=== PATIENT | male | born 1970 | race African-American/Black ===

== ENCOUNTER 2017-01-25 07:59 | Day surgery (SDC) | payer OTHER ==
[~2017-01-25] VITALS: Ht 167.6 cm; Wt 81.7 kg
--- NOTE | 2017-01-25 10:38 | NUR ---
01/25/17 1038 Lashawn Hanson 1022 RESP EVEN AND UNLABORED. PT WOKE UP REORIENTED TO PACU. DENINES PAIN AND NAUSEA. IV IN RIGHT AC INFUSING. 1036 PT SITTING UP DENIENS NAUSEA AND PAIN.
--- NOTE | 2017-01-26 07:59 | OR ---
[facility] [address], [place] [address] Signed DATE OF OPERATION: 01/25/2017 SURGEON: Kathie Santiago MD COLONOSCOPY REPORT PREOPERATIVE DIAGNOSES: 1. Rectal bleeding. 2. Guaiac-positive stool. POSTOPERATIVE DIAGNOSES: 1. 5 x 12 mm pedunculated polyp at 20 cm (tattoo). 2. 4 mm polyps x2 at 18 cm. 3. 3 mm polyp x1 at 10 cm. 4. Ndletqs-ws-qpcvqift external hemorrhoids. PROCEDURE: Colonoscopy with snare polypectomy, hot biopsy, and tattoo at 20 cm. ESTIMATED BLOOD LOSS: Minimal. INDICATIONS: Richard is a 46-year-old gentleman from our [facility]. He has noted some blood on the toilet paper over the last 3 months. His stool was guaiac positive. He was asked to see me for his colonoscopy. He has no family history of colon cancer or polyps. Of course, he has never had previous colonoscopy. I reviewed with Richard the nature of a colonoscopy along with the risks including, but not limited to gas, bloating, crampy abdominal pain, bleeding, perforation requiring surgery, and missed diagnosis. We also discussed the need for IV conscious sedation. He had expressed understanding and wished to proceed. PROCEDURE NOTE: Richard was taken into our endoscopy suite and placed in the left lateral decubitus position. He was given divided doses of 9 mg of Versed and 150 mcg of fentanyl. A digital rectal exam was performed and he does have bimlgqr-cw-copoovlc bilateral external hemorrhoids. He has good sphincter tone. There were no masses noted. The adult colonoscope was then introduced and advanced all around into the cecum under direct visualization of camera without difficulty. His prep was quite good. The scope was then slowly withdrawn. We found this 5 x 12 mm pedunculated polyp at 20 cm. We divided Electronically Signed By: KATHIE SANTIAGO MD 01/26/17 0759 PATIENT NAME: RICHARD STRAUSS OPERATIVE REPORT DATE OF : 68 PHYSICIAN: KATHIE SANTIAGO MD REPORT #: [id number] REPORT IS CONFIDENTIAL AND NOT TO BE RELEASED WITHOUT AUTHORIZATION [facility] [address], [place] [address] Signed probably 90% of it with the snare and captured it for pathology. We then cauterized the base and that tissue went separately. We then injected tattoo just to the side of the area that we cauterized to keith its location. After this, at 18 cm, there were 2 small polyps, thus we removed with a hot biopsy forceps and another small polyp back in the mid rectum at 10 cm was removed with hot biopsy forceps. After this, the scope in retroflexion really no additional pathology noted above the anal canal. The gas was then suctioned out and colonoscope removed. Richard tolerated the procedure quite well. RECOMMENDATIONS: I will see Richard back in the office here in a few weeks and we will review the pathology report in his results. MD LARRY Ruano/JOHNL /[id number] cc: MD Kathie Valle MD Electronically Signed By: KATHIE SANTIAGO MD 01/26/17 0759 PATIENT NAME: RICHARD STRAUSS OPERATIVE REPORT DATE OF : 68 PHYSICIAN: KATHIE SANTIAGO MD REPORT #: [id number] REPORT IS CONFIDENTIAL AND NOT TO BE RELEASED WITHOUT AUTHORIZATION
== END 2017-01-25 11:04 | disposition home or self-care (01) ==
LOC: DS 07:59 → OPS 07:59 → DS 09:45 → OPS 09:45
PROVIDERS: Colon & Rectal Surgery
PROC: 3E0H8GC Introduction of Other Therapeutic Substance into Lower GI, Via Natural or Artificial Opening Endoscopic (ICD-10-PCS; 2017-01-25)
PROC: 0DBE8ZX Excision of Large Intestine, Via Natural or Artificial Opening Endoscopic, Diagnostic (ICD-10-PCS; principal; 2017-01-25 09:45)
DX: D12.6 Benign neoplasm of colon, unspecified (principal); K63.5 Polyp of colon; K64.4 Residual hemorrhoidal skin tags; Z79.899 Other long term (current) drug therapy
CPT/HCPCS: 99152; 99153; J2250; J3010

== ENCOUNTER 2017-03-17 06:52 | Day surgery (SDC) | payer OTHER ==
[~2017-03-17] VITALS: Ht 167.6 cm; Wt 83.9 kg
[2017-03-17] MEDS ORDERED: NORCO 5-325 TA1 EACH PO (07:13)
[2017-03-17] MEDS ORDERED: NEURONTIN400 MG PO (07:14)
[2017-03-17] MEDS ORDERED: VENTOLIN HFA18 GM INH (07:17)
--- NOTE | 2017-03-17 10:40 | NUR ---
03/17/17 1040 Lashawn Hanson 1008 RESP EVEN AND UNLABORED WITH ORAL AIRWAY IN PLACE. 1011 ORAL AIRWAY REMOVED, PT DROWSY. REORIENTED TO PACU. 1020 O2 REMOVED, O2 SAT 100%. 1025 PT REPORTS PAIN 8/10, PAIN MEDICAITON GIVEN PER EMAR. 1027 PT USING URINAL. 1032 PT REPORTING A DECREASE IN PAIN, 6/10
--- NOTE | 2017-03-17 11:40 | NUR ---
LE 1105: PT ARRIVES TO TREATMENT ROOM IN DS UNIT, AWAKE AND ORIENTED. PT HAS NC IN PLACE WITH 2L O2. ICED WATER AND CRACKERS PROVIDED ON ARRIVAL. PT STATES THE "BACK OF HIS HEEL HURTS AND HIS TOES FEEL NUMB AND A LITTLE TINGLY." PAIN MEDS GIVEN WITH ADD'L CRACKERS. NC REMOVED AND PT MONITORED. O2 SATS MAINTAINING AT 99-100. PT HAS VOIDED SMALL QUANTITIES SEVERAL TIMES IN URINAL SINCE BACK TO DS UNIT. TRANSPORT OFFICERS IN ROOM. CALL LIGHT WITHIN REACH, PT RESTING QUITELY WATCHING TV. NO FURTHER QUESTIONS AT THIS TIME.
--- NOTE | 2017-03-17 12:26 | NUR ---
LE 1215: PT RESTING QUIETLY IN BED WHEN RN ENTERS THE ROOM. PT RATES PAIN 8/10. NO NON-VERBAL INDICATORS OF PAIN PRESENT. PT HAS VOIDED 300 ML IN URINAL OF CLEAR YELLOW URINE. URINAL EMPTIED AND PATIENT REPORTS THE URGE TO VOID AGAIN. URINAL GIVEN. PATIENT VOIDS 200 ML CLEAR YELLOW URINE. DC INSTRUCTIONS ARE GIVEN AND PATIENT VERBALIZES UNDERSTANDING. CALL REPORT GIVEN TO DOMINGO WHITE AT [facility] AND HER QUESTIONS ARE ANSWERED. PT DRESSES WITH THE HELP OF TRANSPORT OFFICERS AND DOES THAT WELL. PATIENT ONE FOOT PIVOT TRANSFERS HIMSELF INTO THE AND IS DC HOME W/OFFICER TRANSPORT.
--- NOTE | 2017-03-29 07:07 | OR ---
[facility] [place] [facility] [address] [place], [place] [address] Signed DATE OF OPERATION: 03/17/2017 SURGEON: Griffin Wang MD PREOPERATIVE DIAGNOSIS: Mid-substance heel cord rupture left. POSTOPERATIVE DIAGNOSIS: Mid-substance heel cord rupture left. PROCEDURE: Heel cord repair, left using Arthrex PARS SpeedBridge technique. ANESTHESIA: General. SPECIMENS AND COMPLICATIONS: There were no specimens or complications. TOURNIQUET TIME: About 40 minutes. WHAT WAS DONE: The patient was taken to the operating room. After anesthesia was induced and airway secured, the patient was placed in the prone position and secured on bolsters and bony prominences were padded. The left lower extremity was prepped and draped in a routine sterile fashion. The leg was exsanguinated with an Esmarch bandage. Pneumatic tourniquet was inflated to 300 mmHg pressure. Palpation along the heel cord with the foot in dorsiflexion revealed the level of the defect. About a centimeter distal there too, we made a small transverse incision directly over the heel cord. We then were able to expose the paratenon with a blunt dissection. The lesser saphenous vein and the sural nerve were identified and retracted with a small Ragnell-Jesus retractor. We then opened the paratenon longitudinally. The PARS jig was then slid up the paratenon until the inner limbs hit to the musculotendinous junction. We then gently spread it. Following the protocol, we passed sutures of 1 through 5. These were then pulled out distally through the paratenon sheath. We then used the loop sutures to lock the blue suture. After securing the locks, we found we had a mobile tendon with excellent proximal fixation. We then proceeded distally where 2 small 1 cm vertical incisions were made on either side of the heel cord. Skin was divided sharply and dissection was carried right down to bone with full-thickness flaps. We then used the tip of the Bovie Electronically Signed By: GRIFFIN WANG MD 03/29/17 0707 PATIENT NAME: RICHARD STRAUSS OPERATIVE REPORT DATE OF : 68 PHYSICIAN: GRIFFIN WANG MD REPORT #: [id number] REPORT IS CONFIDENTIAL AND NOT TO BE RELEASED WITHOUT AUTHORIZATION [facility] [place] [facility] [address], [place] [address] Signed just to elevate a small amount of soft tissue at the base of each of these. Again, using the a SwiveLock drill, we drilled 2 holes and tapped them. We then used the curved cannulated awl to pass up through the distal incisions along the tendon and bring it out to the mid substance of the tendon and then capturing the proximal sutures and drying them distally. Once this had been done on both sides. We were able to tension it affectively. Beginning laterally with the foot held in mild gravity equinus, we tensioned the heel cord and secured it distally with a SwiveLock. We then repeated this on the medial side. At this point, Mcbride tested, returned to negative. The heel cord appeared intact to palpation. The wounds were gently irrigated at the paratenon and subcutaneous tissues were closed with 3-0 undyed Vicryl and the skin was closed with 4-0 nylon. Local anesthetic was injected around the incisions and the dressing was placed. He was placed back in his CAM walker boot, awakened, taken to the recovery room where he arrived in stable condition. Counts were correct and antibiotic protocols were followed. MD ASHA MckennaB/MODL /[id number] Electronically Signed By: GRIFFIN WANG MD 03/29/17 0707 PATIENT NAME: RICHARD STRAUSS OPERATIVE REPORT DATE OF : 68 PHYSICIAN: GRIFFIN WANG MD REPORT #: [id number] REPORT IS CONFIDENTIAL AND NOT TO BE RELEASED WITHOUT AUTHORIZATION
== END 2017-03-17 12:25 | disposition home or self-care (01) ==
LOC: DS 06:52 → OPS 06:52 → DS 08:45 → OPS 12:25
PROVIDERS: Orthopaedic Surgery
PROC: 0LQP0ZZ Repair Left Lower Leg Tendon, Open Approach (ICD-10-PCS; principal; 2017-03-17 08:45)
DX: S86.012A Strain of left Achilles tendon, initial encounter (principal); Y93.79 Activity, other specified sports and athletics; Z79.899 Other long term (current) drug therapy
CPT/HCPCS: 01472; 64445; 76942; C1713; J0330; J0690; J1100; J1885; J2250; J2270; J2405; J2704; J2765; J3010; J7120

== ENCOUNTER 2018-03-09 06:20 | Day surgery (SDC) | payer OTHER ==
[~2018-03-09] VITALS: Ht 167.6 cm; Wt 78.5 kg
[~2018-03-09 06:20] MED LIST: ALL DAY ALLERGY10 M3 PO; AMITRIPTYLINE H25 MG PO; GABAPENTIN600 MG PO; NEURONTIN400 MG PO; NORCO 5-325 TA1 EACH PO; QVAR REDIHALE10.6 G1; VENTOLIN HFA18 GM INH
[2018-03-09] MEDS ORDERED: BREO ELLIPTA I1 EACH INH (06:34)
--- NOTE | 2018-03-09 08:00 | NUR ---
03/09/18 0759 Lashawn Gibson 0754 PT ARRIVED TO PACU ON 4L VIA NC, PT DROWSY AND REORIENTED TO PACU PT BACK TO SLEEP. RESP EVEN AND UNLABORED. 0756 O2 REMOVED.
--- NOTE | 2018-03-10 06:39 | OR ---
[facility] [address] [place], [place] [address] Signed DATE OF OPERATION: 03/09/2018 SURGEON: Kathie Santiago MD PREOPERATIVE DIAGNOSES: 1. Personal history of colonic polyp at 20 cm with a tattoo (2017). 2. Personal history of hyperplastic rectal polyps (2017). 3. Minimal to moderate external hemorrhoids. POSTOPERATIVE DIAGNOSIS: Minimal to moderate internal and external hemorrhoids. PROCEDURE: Colonoscopy without biopsy. ESTIMATED BLOOD LOSS: None. INDICATIONS: Richard is a 47-year-old gentleman, who came to us in January 2017, for rectal bleeding and guaiac-positive stool. He had a friable pedunculated 5 x 12 mm polyp removed at 20 cm. We left a tattoo. We felt comfortable. The polyp was completely removed. He also had some small hyperplastic polyps removed in the upper and lower rectum. He is known to have some external hemorrhoids as well. In the meantime, he says he is doing fine. He sees a little blood once in a while when he wipes from his hemorrhoids. He said no one in the family to his knowledge has any colon cancer or polyps. We have Richard returning now in a short interval so we can reevaluate the colon particularly at 20 cm. I had met with Richard in the office. He is very familiar with colonoscopy. He understands the nature of the test along with the risks including, but not limited to gas bloating, crampy abdominal pain, bleeding, perforation, requiring surgery, and missed diagnosis. He also understands the need for IV conscious sedation. He had expressed understanding and wished to proceed. PROCEDURE NOTE: Richard was taken into our endoscopy suite and placed in the left lateral decubitus position. He was given IV sedation with 6 mg of Versed and 150 mcg of fentanyl. A digital rectal exam was performed and this showed some minimal external hemorrhoids. He has good sphincter tone. Prostate was unremarkable. Just slightly indurated. The adult colonoscope was then introduced and advanced under direct visualization of the camera up into the cecum itself. His prep was good. The scope was slowly withdrawn. Electronically Signed By: KATHIE SANTIAGO MD 03/10/18 0639 PATIENT NAME: RICHARD STRAUSS OPERATIVE REPORT DATE OF : 68 REPORT #: [id number] PHYSICIAN: KATHIE SANTIAGO MD PCP: MONSERRAT GOETZ MD REPORT IS CONFIDENTIAL AND NOT TO BE RELEASED WITHOUT AUTHORIZATION [facility] [address] [place], [place] [address] Signed We found no pathology throughout the entire colon or rectum. We could easily see the tattoo at 20 cm. We examined that area very carefully and found no evidence of any recurrent polyp. We did see the previous polypectomy scar. In the rectum, the scope had been retroflexed and he does have some minimal to moderate internal hemorrhoids as well. After this, the gas was suctioned out and colonoscope removed. Richard tolerated the procedure quite well. RECOMMENDATIONS: I am happy to see Richard back in the office in the next 1-2 months to follow up his colonoscopy. Otherwise, he will need a followup colonoscopy every 5 years, the rest of his life. Kathie Santiago MD ALB/MODL /[id number] cc: MD Khang Ruano MD Copies: KATHIE SANTIAGO MD, LELAND MD ~ Electronically Signed By: KATHIE SANTIAGO MD 03/10/18 0639 PATIENT NAME: RICHARD STRAUSS OPERATIVE REPORT DATE OF : 68 REPORT #: [id number] PHYSICIAN: KATHIE SANTIAGO MD PCP: MONSERRAT GOETZ MD REPORT IS CONFIDENTIAL AND NOT TO BE RELEASED WITHOUT AUTHORIZATION
== END 2018-03-09 08:30 | disposition home or self-care (01) ==
LOC: DS 06:20
PROVIDERS: Colon & Rectal Surgery
PROC: 0DJD8ZZ Inspection of Lower Intestinal Tract, Via Natural or Artificial Opening Endoscopic (ICD-10-PCS; principal; 2018-03-09 06:45)
DX: K64.4 Residual hemorrhoidal skin tags (principal); K64.8 Other hemorrhoids; Z86.010 Personal history of colon polyps; Z98.890 Other specified postprocedural states
CPT/HCPCS: G0500; J2250; J3010; J7120